=== PATIENT | male | born 1985 | race Two or more races ===

== ENCOUNTER 2017-06-23 04:46 | Emergency (ER) | payer OTHER ==
[2017-06-23 05:00] VITALS: PULSE 97; TEMP 98.1
[2017-06-23 05:32] LABS: % IMMATURE GRANULYOCYTES 0.9 % (0.0-1.1); ABSOLUTE IMMATURE GRANULOCYTES 0.03 10^3/uL (0.00-0.10); ADD DIFF? NO; ADD MORPH? NO; ADD SCAN? NO; ATYPICAL LYMPHOCYTE FLAG 0 (0-99); FRAGMENT RBC FLAG 0 (0-99); HEMOGLOBIN 7.1 g/dL (13.7-17.5); LEFT SHIFT FLG 10 (0-99); LIPEMIA HEMOLYSIS FLAG 90 (0-99); MEAN CELL HEMOGLOBIN 31.6 pg (27.9-34.1); MEAN CELL HEMOGLOBIN CONCENTR. 33.8 g/dL (32.4-36.7); MEAN CELL VOLUME 93.3 fL (81.5-99.8); MEAN PLATELET VOLUME 9.5 fL (8.7-11.7); PLATELET CLUMPS FLAG 0 (0-99); RED BLOOD CELL COUNT 2.25 10^6/uL (4.40-6.38); RED CELL DISTRIBUTION WIDTH 19.6 % (11.5-15.2)
[2017-06-23 05:34] LABS: PLATELET COUNT 43 10^3/uL (150-400)
[2017-06-23 05:36] LABS: INR 1.5 (0.83-1.16); PROTIME(PATIENT) 18.3 SEC (12.0-15.0)
[2017-06-23 05:37] LABS: APTT 34.1 SEC (23.0-38.0)
[2017-06-23 05:41] LABS: ALANINE AMINOTRANSFERASE 43 IU/L (21-72); ALBUMIN 3.2 g/dL (3.5-5.0); ALKALINE PHOSPHATASE 82 IU/L (38-126); ANION GAP 14 mEq/L (8-16); ASPARTATE AMINOTRANSFERASE 76 IU/L (17-59); CARBON DIOXIDE 21 mEq/l (22-31); CHLORIDE 114 mEq/L (97-110); GLOMERULAR FILTRATION RATE > 60; GLUCOSE 92 mg/dL (70-100); POTASSIUM 3.7 mEq/L (3.5-5.2); SODIUM 149 mEq/L (134-144); TOTAL PROTEIN 6.8 g/dL (6.3-8.2)
[2017-06-23] MEDS ORDERED: ONDANSETRON 4 MG/2 ML VIAL IVP ONE (05:41)
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
[2017-06-23 05:57] LABS: CALCIUM 8.1 mg/dL (8.5-10.4)
[2017-06-23 06:19] LABS: BILIRUBIN,TOTAL 2.2 mg/dL (0.1-1.4)
[2017-06-23 06:34] LABS: PLATELET ESTIMATE DECREASED (ADEQ)
[2017-06-23 06:40] LABS: BILIRUBIN-UNCONJUGATED 1.2 mg/dL (0.0-1.1)
[2017-06-23] MEDS ORDERED: IOPAMIDOL (ISOVUE-300) 100 ML BTL ONE (06:40)
[2017-06-23 06:57] VITALS: BP 135/81; RESP 18
[2017-06-23 07:38] VITALS: O2SAT 98
== END 2017-06-23 07:36 | disposition home or self-care (01) ==
DX: K74.60 Unspecified cirrhosis of liver (principal); F10.10 Alcohol abuse, uncomplicated; F17.200 Nicotine dependence, unspecified, uncomplicated
CPT/HCPCS: 96374; J2405; Q9967